=== PATIENT | female | born 1950 | race Caucasian/White ===

== ENCOUNTER 2018-09-09 11:01 | Emergency (ER) | payer MEDICARE, OTHER ==
[~2018-09-09] VITALS: Ht 165.1 cm; Wt 56.8 kg
[~2018-09-09 11:01] MED LIST: AVAPRO TAB150 MG/TAB PO; AVAPRO75 MG PO; CENTRUM1 TAB PO; NASONEX SPRAY17 GM NS; NEXIUM40 MG PO; PRILOSEC10 MG PO; TYLENOL 500MG500 MG PO; ZITHROMAX Z PA250 MG PO
[2018-09-09 11:02] VITALS: TEMP 98.6
[2018-09-09 12:22] VITALS: BP 133/79; PULSE 92
== END 2018-09-09 12:23 | disposition home or self-care (01) ==
LOC: COL.ER 11:01
DX: S09.90XA Unspecified injury of head, initial encounter (principal); S70.01XA Contusion of right hip, initial encounter; I10 Essential (primary) hypertension; W01.0XXA Fall on same level from slipping, tripping and stumbling without subsequent striking against object, initial encounter